=== PATIENT | male | born 1970 | race Two or more races ===

== ENCOUNTER 2025-01-02 19:15 | Inpatient (IN) | payer OTHER ==
[~2025-01-02] VITALS: Ht 175.3 cm; Wt 109.0 kg
[2025-01-02] MEDS: ENOXAPARIN 40MG/0.4ML SYR SUBCUT SCH (01:20)
[2025-01-02 19:25] VITALS: O2SAT 99
[2025-01-02] MEDS ORDERED: PHEN97.22 PO (19:31)
[2025-01-02] MEDS: LEVETIRACETAM 1000MG PREMIX 100 ML IV ONE (20:01)
[2025-01-02] MEDS: SODIUM CHLORIDE 0.9% 1,000 ML IV ONE (20:02)
[2025-01-02] MEDS: LORAZEPAM 2MG/ML UD SYRINGE ONE (20:42)
[2025-01-02 20:44] LABS: BASOPHILS % 0.3 % (0.0-2.0); EOSINOPHILS % 0.4 % (0.0-5.0); HEMATOCRIT. 43.0 % (42.0-52.0); HEMOGLOBIN. 13.9 g/dL (14.0-18.0); LYMPHOCYTES % 14.9 % (20.0-50.0); MEAN PLATELET VOLUME 7.6 fl (7.4-10.4); MONOCYTES % 11.6 % (2.0-8.0); NEUTROPHILS % 72.8 % (40.0-76.0); PLATELET 221 x1000/uL (130-400); RED BLOOD CELL COUNT 4.79 mill/uL (4.7-6.1); RED CELL DISTRIBUTION WIDTH 14.4 % (11.6-14.6)
[2025-01-02 20:57] LABS: CREATININE 1.1 mg/dL (0.6-1.3)
[2025-01-02 20:58] LABS: PHENOBARBITAL 23.9 ug/mL (15.0-40.0); TROPONIN I HIGH SENSITIVITY < 4 ng/L (3.0-53); UREA NITROGEN BLOOD 7 mg/dL (9-23)
[2025-01-02 20:59] LABS: ASPARTATE AMINOTRANSFERASE 78 IU/L (<34)
[2025-01-02 21:00] LABS: BILIRUBIN DIRECT < 0.1 mg/dL (<=3.0); BILIRUBIN TOTAL 0.2 mg/dL (0.1-1.0); PROTEIN TOTAL 6.4 g/dL (6.0-8.3)
[2025-01-02 21:02] LABS: CARBAMAZEPINE < 0.4 ug/mL (4-12)
[2025-01-02] MEDS: LIDOCAINE HCL 1% 20ML VIAL INFIL ONE (22:00)
[2025-01-02] MEDS ORDERED: ONDANSETRON HCL 4MG/2ML INJ IV PRN (22:30)
[2025-01-02] MEDS ORDERED: NALOXONE HCL 0.4MG/ML VIAL IV PRN (22:30)
[2025-01-02] MEDS ORDERED: HYDROCODONE/ACETAMINOPHEN 5/325MG TABLET PO PRN (22:30)
[2025-01-02] MEDS ORDERED: CLONIDINE 0.1MG TABLET PO PRN (22:30)
[2025-01-02] MEDS ORDERED: LORAZEPAM 2MG/ML UD SYRINGE IV PRN (22:30)
[2025-01-02] MEDS ORDERED: ZOLPIDEM TARTRATE 5MG TABLET PO PRN (22:30)
[2025-01-02] MEDS ORDERED: MAGNESIUM/ALUMINUM HYDROXIDE/SIMETHICONE 30ML UDC PO PRN (22:30)
[2025-01-03] VITALS (7 sets, daily range): BP systolic 91–125; BP diastolic 60–86; PULSE 78–108; RESP 12–25; TEMP 36.5–37.6; O2SAT 93–98
[2025-01-03 00:15] LABS: CLARITY URINE CLEAR (CLEAR); COLOR URINE YELLOW (YELLOW); GLUCOSE URINE NEGATIVE (NEGATIVE); KETONES URINE TRACE (NEGATIVE); LEUKOCYTE ESTERASE URINE NEGATIVE (NEGATIVE); NITRITE URINE NEGATIVE (NEGATIVE); OCCULT BLOOD URINE NEGATIVE (NEGATIVE); PH URINE 5.5 (4.5-8.0); PROTEIN URINE TRACE (NEGATIVE); SPECIFIC GRAVITY URINE 1.019 (1.005-1.030); UROBILINOGEN URINE 0.2 E.U./dL (0.2-1.0)
[2025-01-03 00:39] LABS: *AMPHETAMINES SCREEN URINE NEGATIVE (NEGATIVE); *BARBITURATES SCREEN URINE PRESUMPTIVE POSITIVE (NEGATIVE); *BENZODIAZEPINES SCREEN URINE NEGATIVE (NEGATIVE); *COCAINE SCREEN URINE NEGATIVE (NEGATIVE); CANNABINOID URINE SCREEN NEGATIVE (NEGATIVE); ECSTASY MDMA SCREEN URINE NEGATIVE (NEGATIVE); METHADONE URINE SCREEN NEGATIVE (NEGATIVE); OPIATES URINE SCREEN NEGATIVE (NEGATIVE); PHENCYCLIDINE URINE SCREEN NEGATIVE (NEGATIVE)
[2025-01-03] MEDS ORDERED: IBUP-2030 PO (00:41)
[2025-01-03] MEDS ORDERED: TOPI-252 MT (00:41)
[2025-01-03] MEDS: SODIUM CHLORIDE 0.9% 1,000 ML IV SCH (00:59)
[2025-01-03 01:25] LABS: BACTERIA URINE NONE SEEN; RBC URINE NONE SEEN /hpf (0-2); SQUAMOUS EPITHELIAL CELL URINE NONE SEEN /lpf (RARE/1+); WBC URINE NONE SEEN /hpf (0-2)
[2025-01-03 01:30] LABS: FINE GRANULAR CASTS URINE 0-5 /lpf
[2025-01-03] MEDS: PANTOPRAZOLE SODIUM 40 MG/VIAL IV SCH (08:38)
[2025-01-03] MEDS: LEVETIRACETAM 500MG PREMIX 100 ML IV SCH (08:39)
[2025-01-03] MEDS: PHENOBARBITAL 100MG TABLET PO SCH (08:47)
[2025-01-03 09:24] LABS: BASOPHILS % 0.3 % (0.0-2.0); EOSINOPHILS % 0.7 % (0.0-5.0); HEMATOCRIT. 37.5 % (42.0-52.0); HEMOGLOBIN. 12.3 g/dL (14.0-18.0); LYMPHOCYTES % 27.7 % (20.0-50.0); MEAN PLATELET VOLUME 8.1 fl (7.4-10.4); MONOCYTES % 11.4 % (2.0-8.0); NEUTROPHILS % 59.9 % (40.0-76.0); PLATELET 193 x1000/uL (130-400); RED BLOOD CELL COUNT 4.23 mill/uL (4.7-6.1); RED CELL DISTRIBUTION WIDTH 14.4 % (11.6-14.6)
[2025-01-04] VITALS: BP 103/66; PULSE 76; RESP 15; TEMP 36.8; O2SAT 95
[2025-01-04 04:00] VITALS: BP 115/78; PULSE 76; RESP 14; TEMP 36.7; O2SAT 94
[2025-01-04 08:00] VITALS: BP 108/80; PULSE 67; RESP 18; TEMP 37.1; O2SAT 95
[2025-01-04] MEDS: ACETAMINOPHEN 325MG TABLET PO PRN (10:22)
[2025-01-04 12:00] VITALS: BP 128/71; PULSE 92; RESP 12; TEMP 37.1; O2SAT 95
[2025-01-04 16:00] VITALS: BP 115/80; PULSE 88; RESP 19; TEMP 37.4; O2SAT 95
[2025-01-04] MEDS ORDERED: KEPP500 MT (16:04)
[2025-01-04 20:00] VITALS: BP 125/89; PULSE 86; RESP 14; TEMP 36.8; O2SAT 95
[2025-01-04 20:45] LABS: BASOPHILS % 0.4 % (0.0-2.0); EOSINOPHILS % 1.2 % (0.0-5.0); HEMATOCRIT. 39.4 % (42.0-52.0); HEMOGLOBIN. 12.9 g/dL (14.0-18.0); LYMPHOCYTES % 28.2 % (20.0-50.0); MEAN PLATELET VOLUME 7.9 fl (7.4-10.4); MONOCYTES % 12.1 % (2.0-8.0); NEUTROPHILS % 58.1 % (40.0-76.0); PLATELET 195 x1000/uL (130-400); RED BLOOD CELL COUNT 4.42 mill/uL (4.7-6.1); RED CELL DISTRIBUTION WIDTH 14.1 % (11.6-14.6)
[2025-01-05] VITALS: BP 103/63; PULSE 83; RESP 19; TEMP 37.7; O2SAT 93
[2025-01-05 04:00] VITALS: BP 109/48; PULSE 82; RESP 15; TEMP 36.9; O2SAT 94
[2025-01-05 07:00] VITALS: BP 112/80; PULSE 79; RESP 15; TEMP 98.4
[2025-01-05 08:00] VITALS: BP 112/80; PULSE 79; RESP 15; TEMP 36.9; O2SAT 95
[2025-01-05 08:46] VITALS: TEMP 98.4
[2025-01-05 10:26] LABS: BASOPHILS % 0.2 % (0.0-2.0); EOSINOPHILS % 0.6 % (0.0-5.0); HEMATOCRIT. 38.1 % (42.0-52.0); HEMOGLOBIN. 12.6 g/dL (14.0-18.0); LYMPHOCYTES % 19.0 % (20.0-50.0); MEAN PLATELET VOLUME 7.9 fl (7.4-10.4); MONOCYTES % 12.7 % (2.0-8.0); NEUTROPHILS % 67.5 % (40.0-76.0); PLATELET 214 x1000/uL (130-400); RED BLOOD CELL COUNT 4.34 mill/uL (4.7-6.1); RED CELL DISTRIBUTION WIDTH 14.3 % (11.6-14.6)
== END 2025-01-05 11:00 | disposition home or self-care (01) | DRG 100 ==
LOC: ER 19:15 → 3WST 21:55 → EDBEDREQ 21:57 → EDBEDREQTM 21:57 → ENRESERV 23:17
PROVIDERS: ADMIT Internal Medicine; ATTEND Internal Medicine
PROC: 0HQ0XZZ Repair Scalp Skin, External Approach (ICD-10-PCS; principal; 2025-01-02)
DX: G40.909 Epilepsy, unspecified, not intractable, without status epilepticus (principal); G92.8 Other toxic encephalopathy; E87.0 Hyperosmolality and hypernatremia; E05.90 Thyrotoxicosis, unspecified without thyrotoxic crisis or storm; Z79.899 Other long term (current) drug therapy
CPT/HCPCS: 12002; 36415; 80048; 80076; 80156; 80184; 80305; 80320; 81003; 83036; 83735; 84443; 84484; 85025; 93005; 93970; 99285; A4606; J1953; J2003; J2060; J2470; J7030; G0480